=== PATIENT | male | born 1940 | race Hispanic/Latino ===

== ENCOUNTER 2025-04-01 08:01 | Emergency (ER) | payer OTHER ==
[~2025-04-01] VITALS: Ht 170.2 cm; Wt 77.1 kg
--- NOTE | 2025-04-01 09:08 | ERN ---
ED Note History of Present Illness Stated Complaint: LT KNEE INJURY AND PAIN Chief Complaint: Knee Injury/Swelling Time Seen by MD: 08:12 Dictation: 84-year-old male presenting to the emergency department for mechanical fall onto left knee yesterday. Patient reports he fell from standing onto the left knee but did not hit his head neck or back. Patient has been having swelling and pain since the injury. Allergies: Coded Allergies: ceftriaxone (Unverified Allergy, Unknown, 04/01/25) Past Medical History Past Medical History: Diabetes-Type II, High Cholesterol, Hypertension Surgical History: None Review of System Dictation Constitutional: Negative for fever,chills, and weight loss Eyes: Negative for injury, pain,redness, and discharge ENT: Negative for injury,pain or swelling Cardiovascular: Negative for chest pain, palpitations, and edema Respiratory: Negative for shortness of breath, cough, and wheezing, Abdomen/GI: Negative for abdominal pain, nausea, vomiting, diarrhea, and constipation Back: Negative for injury and pain : Negative for injury, bleeding and discharge MS/Extremity: Per HPI Skin: Negative for rash, and discoloration Neuro: Negative for headache, weakness, numbness, tingling, and seizure Psych: Negative for suicide ideation, homicidal ideation, and hallucinations Initial Vital Sign VS Vital Signs Date Time Temp Pulse Resp B/P (MAP) Pulse Ox O2 Delivery O2 Flow Rate FiO2 04/01/25 08:03 98.1 61 20 144/66 99 Room Air 0 Physical Exam Dictation General: awake, alert, NAD Head/Face: Normocephalic, atraumatic Eyes: PERRL, EOMI, vision at baseline ENT: oral cavity clear, TMs clear, no signs of infection Neck: Trachea midline, supple, no nuchal rigidity Cardiovascular: RRR, normal S1/S2, No MRGs, no JVD Respiratory: CTAB, no respiratory distress, No rales or wheezes Abdomen: Soft, non-tender, non-distended, normal bowel sounds, no guarding or rebound. Skin: Warm, dry, normal turgor, no rash MS/Extremity: Pulses equal, no cyanosis, neurovascular intact, FROM, left knee exam reveals [id number] swelling soft tissue, closed, neurovascularly intact distally 2+ pulses, ACL and PCL are intact, no other injuries to body no head or neck injury no tenderness. Neuro: COAx4, GCS 15, strength 5/5, CN 2-12 intact, normal cerebellar exam, normal gait, Psych: Normal behavior, mood, and affect normal Results (Laboratory/Radiology) X-RAY Comment: X-ray reviewed and interpreted by me independently no fractures or dislocations noted, ED Course ED Course Orders Procedure Category Date Status Time Knee 3vws Lt RAD 04/01/25 Taken 08:14 Ketorolac PHA 04/01/25 Complete Tromethamine 15mg/Ml 08:43 Current Medications Medications (Trade) Dose Ordered Sig/Emilia Route PRN Reason Start Time Stop Time Status Last Admin Dose Admin Ketorolac Tromethamine (toRADol) 15 mg ONCE STAT IM 04/01/25 08:43 04/01/25 08:53 DC Vital Signs Date Time Temp Pulse Resp B/P (MAP) Pulse Ox O2 Delivery O2 Flow Rate FiO2 04/01/25 08:03 98.1 61 20 144/66 99 Room Air 0 Medical Decision Making MDM MDM: Differential diagnosis: Rationale: Tests considered and ordered secondary to shared decision making include: Previous outside records reviewed: Old ER visits. Risk of complication and/or morbidity or mortality of patient management: None Medications-Per medication reconciliation Need for hospitalization: Patient does not meet criteria for hospitalization. Need for emergency major/minor surgery: No There are no social concerns with this patient. Prescription drug management Prescriptions will include symptomatic care Patient's prior external medical records from other ER visits were reviewed by me as indicated. Prior testing and results from previous visits were reviewed. Prior tests were taken into account with medical decision making and resource utilization, independent historian/historians were used to obtain complete medical history. I independently interpreted the test that were performed, results were reviewed by me and considered findings on radiology if ordered. Medical management and examination interpretation discussions were had by me with other qualified healthcare professionals as indicated for the patient's care. 84-year-old with ground level fall left knee injury, contusion, no fractures or dislocations stable for discharge, IM pain medicine given, stable for outpatient treatment. DX & DISP Disposition: Discharge Departure Impression: Primary Impression: Contusion of left knee Condition: Stable Scripts Acetaminophen (Tylenol) 325 Mg Tablet 1 TAB PO Q4HPRN PRN for pain or fever for 5 Days, #30 TAB 0 Refills Prov: ESAU JEONG MD 04/01/25 Referrals: DAVID CATHERINE MD (PCP) ESAU JEONG MD Apr 01, 2025 09:08
[2025-04-01 09:12] VITALS: BP 135/65; PULSE 60; RESP 20; TEMP 98.1; O2SAT 99
--- NOTE | 2025-04-01 09:40 | HMCIMG ---
EXAM: CR left Knee, 3 Views. CLINICAL HISTORY: injury COMPARISON: None provided. FINDINGS: BONES: No acute fracture or aggressively appearing osseous lesion. JOINTS: The joint spaces show moderate reduction in the medial compartment of the tibio-femoral joint, tibial spiking, patellar beaking, and osteophytes, suggestive of degenerative osteoarthritis. There is no joint effusion appreciated. SOFT TISSUES: The soft tissues are unremarkable. Atheromatous calcification along the distal superficial femoral artery and the popliteal artery IMPRESSION: No acute osseous pathology evident. 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 Atheromatous calcified plaque in the popliteal artery and distal superficial femoral artery. /Goodman
== END 2025-04-01 09:35 | disposition home or self-care (01) ==
LOC: EDH 08:01
DX: S80.02XA Contusion of left knee, initial encounter (principal); E78.00 Pure hypercholesterolemia, unspecified; E11.9 Type 2 diabetes mellitus without complications; I10 Essential (primary) hypertension; Z88.1 Allergy status to other antibiotic agents; W18.39XA Other fall on same level, initial encounter; Y93.89 Activity, other specified; Y92.89 Other specified places as the place of occurrence of the external cause; Y99.8 Other external cause status
CPT/HCPCS: 99283; 73562; 96372; J1885